=== PATIENT | female | born 1975 | race African-American/Black ===

== ENCOUNTER 2020-07-02 08:09 | Observation (INO) ==
[2020-07-02] MEDS ORDERED: DILTIAZEM 50 MG/10 ML VIAL IV STA (08:34)
[2020-07-02] MEDS ORDERED: dilTIAZem Drip 125 MG/125 ML PREMIX IV SCH (09:00)
[2020-07-02] MEDS ORDERED: DILTIAZEM 25 MG/5 ML VIAL IV ONE ×3 (09:06→09:35)
[2020-07-02 09:17] LABS: Basophils # 0.1 10*3/uL (0.0-0.2); Basophils % 0.7 % (0.0-0.8); Eosinophils % 0.1 % (0.00-10.9); Hematocrit 46.7 VOL% (35.7-47.0); Hemoglobin 14.9 GM/DL (12.0-16.0); Immature Granulocytes % 0.4 %; Immature Granulocytes Absolute 0.04 #; Lymphocytes # 2.1 10*3/uL (1.4-4.0); Lymphocytes % 20.6 % (21.3-54.2); Mean Corpuscular HGB Conc 31.9 GM/DL (32-36); Mean Corpuscular Volume 85.8 FL (87-102); Mean Platelet Volume 10.2 FL (9.6-12.0); Monocytes % 5.3 % (1.7-12.7); Neutrophils % 72.9 % (38.7-73.9); Platelet Count 371 T/CUMM (130-400); Red Blood Count 5.44 MC/CUMM (3.8-5.5); Red Cell Distribution Width 14.4 % (9.3-17.3); White Blood Count 10.3 T/CUMM (4-12)
[2020-07-02 09:40] LABS: Albumin 3.8 G/DL (3.4-5.0); Calcium 9.2 MG/DL (8.5-10.1); Osmolality,Calculated 276.4 MOS/KG (273-304); Total Protein 7.5 G/DL (6.4-8.3)
[2020-07-02 09:51] LABS: PT Patient Result 10.4 SECS (9.8-11.9); Partial Thromboplastin Time 29.5 SECS (23.9-33.8)
[2020-07-02] MEDS ORDERED: MAGNESIUM SULF RIDER 2 GM in PREMIX 1 EACH IV PRN (09:51)
[2020-07-02] MEDS ORDERED: ONDANSETRON 4 MG/2 ML VIAL IV PRN (09:51)
[2020-07-02] MEDS ORDERED: ZALEPLON 5 MG CAPSULE PO PRN (09:51)
[2020-07-02] MEDS ORDERED: MAGNESIUM SULF RIDER 4 GM in PREMIX 1 EACH IV PRN (09:51)
[2020-07-02] MEDS ORDERED: LACTULOSE 20 GM/30 ML UDCUP PO PRN (09:51)
[2020-07-02] MEDS ORDERED: diphenhydrAMINE CAP 25 MG CAPSULE PO PRN (09:51)
[2020-07-02] MEDS ORDERED: POTASSIUM CHLORIDE 20 MEQ TABLET PO STA (09:55)
[2020-07-02 10:24] LABS: Thyroid Stimulating Hormone 3.98 uIU/ml (0.358-3.74)
[2020-07-02] MEDS: SODIUM CHLORIDE 0.45% 1,000 ML IV SCH ×2 (10:32→18:17)
[2020-07-02] MEDS: APIXABAN 5 MG TABLET PO SCH ×2 (10:35→21:14)
[2020-07-02 12:44] LABS: Barbiturates Screen,Urine Negative (Negative); Benzodiazepines Screen,Urine Negative (Negative); Cannabinoid Screen,Urine Negative (Negative); Opiate Screen,Urine Negative (Negative); Phencyclidine Screen,Urine Negative (Negative)
[2020-07-02] MEDS: FLECAINIDE 50 MG TABLET PO SCH (21:14)
[2020-07-03 05:33] LABS: Basophils % 0.4 % (0.0-0.8); Eosinophils # 0.1 10*3/uL (0.0-0.87); Eosinophils % 0.6 % (0.00-10.9); Hematocrit 35.3 VOL% (35.7-47.0); Hemoglobin 11.2 GM/DL (12.0-16.0); Immature Granulocytes % 0.3 %; Immature Granulocytes Absolute 0.03 #; Lymphocytes # 2.7 10*3/uL (1.4-4.0); Lymphocytes % 30.4 % (21.3-54.2); Mean Corpuscular HGB Conc 31.7 GM/DL (32-36); Mean Corpuscular Volume 87.6 FL (87-102); Mean Platelet Volume 10.9 FL (9.6-12.0); Monocytes % 6.2 % (1.7-12.7); Neutrophils % 62.1 % (38.7-73.9); Platelet Count 285 T/CUMM (130-400); Red Blood Count 4.03 MC/CUMM (3.8-5.5); Red Cell Distribution Width 14.3 % (9.3-17.3)
[2020-07-03 05:57] LABS: Bilirubin,Total 0.5 MG/DL (0.2-1.0); Calcium 8.2 MG/DL (8.5-10.1); Osmolality,Calculated 274.4 MOS/KG (273-304); Total Protein 6.1 G/DL (6.4-8.3)
[2020-07-03] MEDS: SODIUM CHLORIDE 0.45% 1,000 ML IV SCH (06:53)
[2020-07-03 08:01] VITALS: BP 94/53
[2020-07-03] MEDS ORDERED: PANTOPRAZOLE 40 MG TABLET PO SCH (09:00)
[2020-07-03] MEDS: APIXABAN 5 MG TABLET PO SCH (09:35)
[2020-07-03] MEDS: FLECAINIDE 50 MG TABLET PO SCH (09:36)
== END 2020-07-03 11:52 | disposition home or self-care (01) ==
LOC: N.ED 08:09 → N.EDINP 08:09 → N.TELES 18:12
PROVIDERS: ADMIT Internal Medicine Cardiovascular Disease; ATTEND Internal Medicine Cardiovascular Disease

== ENCOUNTER 2021-11-05 11:59 | Observation (INO) ==
[2021-11-05] MEDS ORDERED: DILTIAZEM 50 MG/10 ML VIAL IV STA (12:14)
[2021-11-05] MEDS ORDERED: SODIUM CHLORIDE 0.9% 500 ML IV STA (12:14)
[2021-11-05] MEDS ORDERED: ASPIRIN 325 MG TABLET PO STA (12:14)
[2021-11-05 13:15] LABS: PT Patient Result 10.7 SECS (10.5-12.0)
[2021-11-05] MEDS: DILTIAZEM INJ 100 MG in SODIUM CHLORIDE 0.9% 100 ML IV SCH ×2 (13:20→18:50)
[2021-11-05 13:29] LABS: Basophils % 0.5 % (0.0-0.8); Eosinophils % 0.5 % (0.00-10.9); Hematocrit 40.7 VOL% (35.7-47.0); Hemoglobin 11.8 GM/DL (12.0-16.0); Immature Granulocytes % 0.3 %; Immature Granulocytes Absolute 0.02 #; Lymphocytes # 1.6 10*3/uL (1.4-4.0); Lymphocytes % 22.2 % (21.3-54.2); Mean Platelet Volume 10.5 FL (9.6-12.0); Monocytes % 6.2 % (1.7-12.7); Neutrophils % 70.3 % (38.7-73.9); Platelet Count 364 T/CUMM (130-400); Red Blood Count 5.22 MC/CUMM (3.8-5.5); Red Cell Distribution Width 16.5 % (9.3-17.3); White Blood Count 7.3 T/CUMM (4-12)
[2021-11-05 13:56] LABS: Alanine Aminotransferase 17 U/L (13-56); Albumin 3.6 G/DL (3.4-5.0); Alkaline Phosphatase 66 U/L (45-117); Aspartate Amino Transferase 14 U/L (0-37); Bilirubin,Total < 0.39 MG/DL (0.20-1.00); Blood Urea Nitrogen 5 MG/DL (7-18); Calcium 8.9 MG/DL (8.5-10.1); Carbon Dioxide 23 MMOL/L (21-32); Estimated Glom Filtration Rate 122 ML/MIN; Glucose 90 MG/DL (74-106); Osmolality,Calculated 275.4 MOS/KG (273-304); Potassium 3.6 MMOL/L (3.5-5.1); Sodium 140 MMOL/L (136-145); Total Protein 7.9 G/DL (6.4-8.2)
[2021-11-05] MEDS ORDERED: APIXABAN 5 MG TABLET PO ONE (14:20)
[2021-11-05] MEDS ORDERED: SIMETHICONE CHEW 125 MG TABLET PO PRN (14:23)
[2021-11-05] MEDS ORDERED: LACTULOSE 20 GM/30 ML UDCUP PO PRN (14:23)
[2021-11-05] MEDS ORDERED: CALCIUM CARBONATE CHEW 500 MG TABLET PO PRN (14:23)
[2021-11-05] MEDS ORDERED: ACETAMINOPHEN 325 MG TABLET PO PRN (14:23)
[2021-11-05] MEDS ORDERED: traZODone 50 MG TABLET PO PRN (14:23)
[2021-11-05] MEDS ORDERED: ALUMINUM/MAGNES/SIMETH MAX STR 30 ML UDCUP PO PRN (14:23)
[2021-11-05] MEDS ORDERED: MORPHINE 2 MG/1 ML SYRINGE IV PRN (14:23)
[2021-11-05] MEDS ORDERED: BISACODYL 5 MG TABLET PO PRN (14:23)
[2021-11-05] MEDS ORDERED: hydrALAZINE 20 MG/1 ML VIAL IV PRN (14:23)
[2021-11-05] MEDS ORDERED: ONDANSETRON 4 MG/2 ML VIAL IV PRN (14:23)
[2021-11-05 14:26] LABS: Bacteria,Urine Occasional /HPF (Few); Mucus,Urine Occasional /LPF (Occasional); RBC,Urine 2 /HPF (0-4); Squamous Epithelial Cell,Urine Occasional /HPF (0-10); Urine Appearance Clear (Clear); Urine Color Yellow (Yellow)
[2021-11-05 14:27] LABS: Bilirubin,Urine Negative (Negative); Blood, Urine Large mg/dL (Negative); Glucose,Urine (UA) Negative (Negative); Ketones,Urine Negative (Negative); Nitrite,Urine Negative (Negative); Protein,Urine Negative (Negative); Urine Specific Gravity 1.015 (1.001-1.035); Urine Urobilinogen 0.2 eU/dL (<2.0); Urine pH 7.5 (4.5-8.0)
[2021-11-05 15:37] LABS: Free T4 (Free Thyroxine) 0.93 NG/DL (0.76-1.46)
[2021-11-05] MEDS: APIXABAN 5 MG TABLET PO SCH (21:02)
[2021-11-05] MEDS: FLECAINIDE 50 MG TABLET PO SCH (21:10)
[2021-11-06 00:06] VITALS: BP 96/46
[2021-11-06] MEDS: DILTIAZEM INJ 100 MG in SODIUM CHLORIDE 0.9% 100 ML IV SCH (01:20)
[2021-11-06 05:19] LABS: Basophils # 0.1 10*3/uL (0.0-0.2); Basophils % 0.5 % (0.0-0.8); Eosinophils # 0.1 10*3/uL (0.0-0.87); Eosinophils % 0.4 % (0.00-10.9); Hemoglobin 10.7 GM/DL (12.0-16.0); Immature Granulocytes % 0.5 %; Immature Granulocytes Absolute 0.06 #; Lymphocytes # 2.7 10*3/uL (1.4-4.0); Lymphocytes % 22.6 % (21.3-54.2); Mean Corpuscular HGB Conc 28.9 GM/DL (32-36); Mean Corpuscular Volume 79.1 FL (87-102); Mean Platelet Volume 10.8 FL (9.6-12.0); Monocytes % 6.4 % (1.7-12.7); Neutrophils % 69.6 % (38.7-73.9); Platelet Count 351 T/CUMM (130-400); Red Blood Count 4.68 MC/CUMM (3.8-5.5); Red Cell Distribution Width 16.5 % (9.3-17.3); White Blood Count 11.8 T/CUMM (4-12)
[2021-11-06 05:25] LABS: Calcium 7.9 MG/DL (8.5-10.1); Osmolality,Calculated 274.5 MOS/KG (273-304); Potassium 3.4 MMOL/L (3.5-5.1); Thyroid Stimulating Hormone 3.19 uIU/ml (0.358-3.74)
[2021-11-06] MEDS ORDERED: POTASSIUM CHLORIDE 20 MEQ TABLET PO ONE (06:44)
[2021-11-06] MEDS ORDERED: CHOLECALCIFEROL 1,000 UNIT TABLET PO SCH (09:00)
[2021-11-06] MEDS ORDERED: CYANOCOBALAMIN 500 MCG TABLET PO SCH (09:00)
[2021-11-06] MEDS ORDERED: PANTOPRAZOLE 40 MG TABLET PO SCH (09:00)
[2021-11-06] MEDS: APIXABAN 5 MG TABLET PO SCH (09:26)
[2021-11-06] MEDS: FLECAINIDE 50 MG TABLET PO SCH (10:01)
[2021-11-06] MEDS ORDERED: FLECAINIDE 100 MG TABLET PO SCH ×2 (10:15→21:00)
[2021-11-06] MEDS ORDERED: ASCORBIC ACID 500 MG TABLET PO SCH (21:00)
== END 2021-11-06 13:20 | disposition home or self-care (01) ==
LOC: N.EDINP 11:59 → N.ED 11:59 → N.EDINP 11-06 01:15 → N.CC 11-06 01:27
PROVIDERS: ADMIT Internal Medicine Cardiovascular Disease; ATTEND Internal Medicine Cardiovascular Disease